=== PATIENT | female | born 1980 | race Caucasian/White ===

== ENCOUNTER → 2024-07-03 | Day surgery (SDC) | payer MEDICAID ==
[~2024-07-03] VITALS: Ht 160 cm; Wt 61.2 kg
[~2024-07-03] MED LIST: ACETAMINOPHEN 1000MG/100ML 100 ML IV ONE; DEXAMETHASONE 4MG/ML 1ML VIAL ONE; FENTANYL CITRATE/PF 50MCG/ML 2ML VIAL ONE; LACTATED RINGERS 1,000 ML IV SCH; LIDOCAINE HCL 1% 20ML VIAL ONE; LIDOCAINE HCL 2% 5ML SYRINGE IV ONE; OMEP20TA23 PO; ONDANSETRON HCL 4MG/2ML INJ ONE; PROPOFOL 200MG/20ML VIAL IV ONE; ROCURONIUM BROMIDE 10MG/ML VIAL 5ML IV ONE; SUGAMMADEX SODIUM 200MG/2ML VIAL IV ONE; TRIAMCINOLONE ACETONIDE 40MG/ML 1ML VIAL ONE
[2024-07-03 09:44] LABS: UCG SCREEN NEGATIVE
== END | disposition home or self-care (01) ==
LOC: OR 08:24
PROVIDERS: ATTEND Ophthalmology
DX: S02.32XA Fracture of orbital floor, left side, initial encounter for closed fracture (principal); H40.053 Ocular hypertension, bilateral; Z86.2 Personal history of diseases of the blood and blood-forming organs and certain disorders involving the immune mechanism; Z79.899 Other long term (current) drug therapy; Z98.890 Other specified postprocedural states; X58.XXXA Exposure to other specified factors, initial encounter; Y93.89 Activity, other specified; Y92.89 Other specified places as the place of occurrence of the external cause; Y99.8 Other external cause status
CPT/HCPCS: 21390; 81025; J3010; J1100; J3490 ×2; J2003; J2405; J2704; J3301; J0131